=== PATIENT | female | born 1980 | race Caucasian/White ===

== ENCOUNTER 2020-03-30 12:36 | Inpatient (IN) | payer OTHER ==
[~2020-03-30] VITALS: Ht 162.6 cm; Wt 2.7 kg
[2020-04-04] MEDS ORDERED: COZAAR100 MG PO (19:22)
[2020-04-04] MEDS ORDERED: FE C TABLET1 EACH PO (19:22)
[2020-04-04] MEDS ORDERED: B-12500 MCG PO (19:23)
[2020-04-04] MEDS ORDERED: DIALYVITE 800-1 EACH PO (19:23)
[2020-04-04] MEDS ORDERED: PRENATABS RX T1 EACH PO (19:23)
== END 2020-04-07 13:53 | disposition home or self-care (01) | DRG 787 ==
LOC: OB/GYN 04-04 12:31 → LDR 04-04 18:03 → OB/GYN 04-04 18:03 → LDR 04-05 01:08 → OB/GYN 04-05 16:01
PROVIDERS: ADMIT Obstetrics & Gynecology; ATTEND Obstetrics & Gynecology
PROC: 10D00Z1 Extraction of Products of Conception, Low, Open Approach (ICD-10-PCS; principal; 2020-04-04)
PROC: 3E033VJ Introduction of Other Hormone into Peripheral Vein, Percutaneous Approach (ICD-10-PCS; 2020-04-04)
PROC: 3E0D7GC Introduction of Other Therapeutic Substance into Mouth and Pharynx, Via Natural or Artificial Opening (ICD-10-PCS; 2020-04-04)
PROC: 4A1HXFZ Monitoring of Products of Conception, Cardiac Rhythm, External Approach (ICD-10-PCS; 2020-04-04)
DX: O61.0 Failed medical induction of labor (principal); O10.92 Unspecified pre-existing hypertension complicating childbirth; O99.824 Streptococcus B carrier state complicating childbirth; Z3A.38 38 weeks gestation of pregnancy; Z37.0 Single live birth; Z20.828 Contact with and (suspected) exposure to other viral communicable diseases

== ENCOUNTER 2020-12-08 07:55 | Emergency (ER) | payer OTHER ==
[~2020-12-08] VITALS: Ht 162.6 cm; Wt 117.9 kg
[~2020-12-08 07:55] MED LIST: B-12500 MCG PO; COZAAR100 MG PO; DIALYVITE 800-1 EACH PO; FE C TABLET1 EACH PO; PRENATABS RX T1 EACH PO
[2020-12-08] MEDS ORDERED: ZESTRIL20 MG PO (08:26)
[2020-12-08] MEDS ORDERED: BISOPROLOL FUMAR5 MG PO (08:27)
[2020-12-08] MEDS ORDERED: METOCLOPRAMIDE10 MG PO (14:54)
[2020-12-08] MEDS ORDERED: MEDI-MECLIZINE25 MG PO (14:54)
== END 2020-12-08 15:25 ==
LOC: ER 07:55
DX: H81.10 Benign paroxysmal vertigo, unspecified ear (principal); Z03.818 Encounter for observation for suspected exposure to other biological agents ruled out

== ENCOUNTER 2021-07-12 17:57 | Emergency (ER) | payer OTHER ==
[~2021-07-12] VITALS: Ht 162.6 cm; Wt 120.2 kg
[~2021-07-12 17:57] MED LIST changes: +BISOPROLOL FUMAR5 MG PO; +MEDI-MECLIZINE25 MG PO; +METOCLOPRAMIDE10 MG PO; +ZESTRIL20 MG PO
== END 2021-07-13 00:05 | disposition home or self-care (01) ==
LOC: ER 17:57
DX: U07.1 COVID-19 (principal); R19.7 Diarrhea, unspecified

== ENCOUNTER 2021-12-06 15:19 | Emergency (ER) | payer OTHER ==
[~2021-12-06] VITALS: Ht 162.6 cm; Wt 118.8 kg
== END 2021-12-06 20:57 | disposition home or self-care (01) ==
LOC: ER 15:19
DX: J15.7 Pneumonia due to Mycoplasma pneumoniae (principal); R51.9 Headache, unspecified; I10 Essential (primary) hypertension

== ENCOUNTER 2022-04-23 21:19 | Emergency (ER) | payer OTHER ==
[~2022-04-23] VITALS: Ht 162.6 cm; Wt 122.5 kg
== END 2022-04-24 06:22 | disposition home or self-care (01) ==
LOC: ER 21:19
DX: K52.9 Noninfective gastroenteritis and colitis, unspecified (principal); I10 Essential (primary) hypertension

== ENCOUNTER 2022-12-10 03:07 | Inpatient (IN) | payer OTHER ==
[~2022-12-10] VITALS: Ht 162.6 cm; Wt 123.4 kg
--- NOTE | 2022-12-10 03:23 | NUR ---
SE RECIBE PTE ALERTA Y ORIENTADA X3 REFIERE TENER TOS Y DIFICULTADA PARA RESPIRAR LA MISMA REFIERE QUE DESPUES QUE TUVO COVID POSITIVO CADA CONGESTION AL [place] SATURANDO 97%. PTE REFIERE QUE HOY TERMINO ANTIBIOTICOS HOY PORQUE TUVO LKUAS CON TAMEZ DR. DE [place] LE ORDENO AZITROMICYN TAB 500MG YA PRESENTO GLOBULOS RODRIGUEZ ELEVADOS. SE ARLETTE VITALES Y SE MALISSA EN REYNA DE ESPERA
--- NOTE | 2022-12-10 04:21 | NUR ---
PTE ALERTA Y ORIENTADA X3, SE LE ARLETTE MUESTRAS DE LAB. OCTAVIO ORDEN MEDICA BAJO MEDIDAS ASEPTICAS. SE ADMINISTRAN MEDICAMENTOS OCTAVOI ORDEN MEDICA Y SE EDUCA SOBRE TRATAMIENTO MEDICO. SE NOTIFICA ORDEN DE ABG Y TERAPIAS RESPIRATORIAS PENDIENTES A TERAPISTA DE TURNO. PTE MANEJADO POR JESSICA.
--- NOTE | 2022-12-10 08:27 | NUR ---
SE RECIBE PTE ALERTA ORIENTADA X3 EN CAMA CON BARANDAS ELEVADAS POR TAMEZ SEGURIDAD.CON VENTURY MASK 35% SAT-98%.PENDIENTE CONSULTA CON .
== END 2022-12-16 17:56 | disposition home or self-care (01) | DRG 202 ==
LOC: ER → MEDI 11:56
PROVIDERS: General Practice; ADMIT Internal Medicine; ATTEND Internal Medicine
PROC: 3E0F7GC Introduction of Other Therapeutic Substance into Respiratory Tract, Via Natural or Artificial Opening (ICD-10-PCS; principal; 2022-12-10)
DX: J45.901 Unspecified asthma with (acute) exacerbation (principal); J18.8 Other pneumonia, unspecified organism; I10 Essential (primary) hypertension; R09.02 Hypoxemia

== ENCOUNTER 2023-12-25 08:49 | Emergency (ER) | payer OTHER ==
[~2023-12-25] VITALS: Ht 162.6 cm; Wt 121.6 kg
[2023-12-25] MEDS ORDERED: KETOROLAC TROMETHAMINE 60 MG VIAL IM ONE (09:45)
[2023-12-25 11:53] LABS: HEMATOCRIT 37.8 % (36.0-45.00); HEMOGLOBIN 12.9 g/dL (12.0-15.00); MEAN CELL VOLUME 83.8 fL (80.00-100.00); MEAN CORPUSCULAR HEMOGLOBIN 28.5 pg (27.00-32.0); PLATELET COUNT 446 K/uL (150-450); RED BLOOD COUNT 4.51 M/uL (4.00-6.00); RED CELL DISTRIBUTION WIDTH 13.4 % (11.5-14.5)
[2023-12-25 12:22] LABS: CALCIUM 9.2 mg/dL (8.5-10.1); CREATININE SERUM 0.69 mg/dL (0.55-1.02); GFR 93.3; POTASSIUM 3.95 mEq/L (3.5-5.1)
[2023-12-25 12:42] LABS: URINE APPEARANCE Clear; URINE BILIRRUBIN Negative (NEGATIVE); URINE BLOOD Small; URINE COLOR Yellow; URINE GLUCOSE Negative (NEGATIVE); URINE KETONE Negative (NEGATIVE); URINE LEUKOCYTE Trace; URINE NITRATE Negative; URINE PROTEIN Negative (NEGATIVE)
[2023-12-25 12:43] LABS: URINE BACTERIA 2407.8 uL (0.0-1933); URINE RBC 15.7 uL (0.0-20.8); URINE WBC 32.4 uL (0.0-23.2)
[2023-12-25 13:19] LABS: URINE CAST 0.45 uL (0.0-1.40); URINE CRYSTALS FEW /HPF
== END 2023-12-25 14:24 | disposition home or self-care (01) ==
LOC: ER 08:50
PROVIDERS: General Practice
DX: N83.00 Follicular cyst of ovary, unspecified side (principal); R10.2 Pelvic and perineal pain; I10 Essential (primary) hypertension

== ENCOUNTER 2024-03-19 08:47 | Emergency (ER) | payer OTHER ==
[~2024-03-19] VITALS: Ht 152.4 cm; Wt 119.7 kg
[2024-03-19] MEDS ORDERED: TRIAMCINOLONE ACETONIDE 40 MG/ML VIAL IM ONE (09:30)
[2024-03-19] MEDS ORDERED: KETOROLAC TROMETHAMINE 60 MG VIAL IM ONE (09:30)
[2024-03-19] MEDS ORDERED: DICLOFENAC SODI75 MG PO (10:19)
[2024-03-19] MEDS ORDERED: NORFLEX100MG PO (10:19)
== END 2024-03-19 10:24 | disposition home or self-care (01) ==
LOC: ER 08:49
DX: M54.9 Dorsalgia, unspecified (principal); I10 Essential (primary) hypertension

== ENCOUNTER 2024-11-14 09:39 | Emergency (ER) | payer OTHER ==
[~2024-11-14] VITALS: Ht 162.6 cm; Wt 129.3 kg
[~2024-11-14 09:39] MED LIST changes: +DICLOFENAC SODI75 MG PO; +NORFLEX100MG PO
[2024-11-14] MEDS ORDERED: HYDROCHLOROTH12.5 M2 PO (09:48)
[2024-11-14] MEDS ORDERED: FAMOTIDINE/PF 20 MG/2 ML VIAL IV PUSH ONE (10:45)
[2024-11-14] MEDS ORDERED: 0.9 % SODIUM CHLORIDE 1,000 ML IV SCH (11:00)
[2024-11-14 11:59] LABS: BASO % 0.2 % (0.1-1.2); EOS # 0.06 (0.04-0.54); EOS % 0.3 % (0.7-7.0); LYMPH # 3.53 (1.18-3.74); LYMPH % 18.6 % (19.3-53.1); MEAN PLATELET VOLUME 9.50 fl (9.4-12.4); MONO # 1.19 (0.24-0.82); MONO % 6.3 % (4.7-12.5); NEUT # 14.11 (1.56-6.13); NEUT % 74.1 % (34.0-71.1); RED CELL DISTRIBUTION WIDTH 12.7 % (11.6-14.4)
[2024-11-14 12:17] LABS: ALT/SGPT 19.0 U/L (12-78); AST/SGOT 10.0 U/L (15-37); BILIRUBIN TOTAL 1.33 mg/dL (0.3-1.2); BUN CREA RATIO 18.0 (7.0-25.0); CREATININE SERUM 0.62 mg/dL (0.55-1.02); GFR 105.06; GLOBULINA 4.4 G/DL (2.4-3.5); GLUCOSE FASTING 108.0 mg/dL (65-100); OSMOLALITY SERUM 279.0 MOSM/KG (275-295)
[2024-11-14 12:21] LABS: URINE APPEARANCE Clear; URINE BILIRRUBIN Negative (NEGATIVE); URINE BLOOD Negative; URINE COLOR Yellow; URINE GLUCOSE Negative (NEGATIVE); URINE KETONE Negative (NEGATIVE); URINE LEUKOCYTE Trace; URINE NITRATE Negative; URINE PROTEIN Negative (NEGATIVE); URINE UROBILINOGEN 1.0 E.U./dl
[2024-11-14 12:25] LABS: URINE BACTERIA 1552.7 uL (0.0-1933); URINE EPITHELIAL CELLS 20.3 uL (0.0-38.8); URINE RBC 2.9 uL (0.0-20.8); URINE WBC 71.2 uL (0.0-23.2)
[2024-11-14 12:36] LABS: URINE CAST 0.43 uL (0.0-1.40)
[2024-11-14] MEDS ORDERED: MORPHINE SULFATE 4 MG/ML CARTRIDGE IV ONE (13:30)
[2024-11-14] MEDS ORDERED: PIPERACILLIN/TAZOBACTAM SODIUM 3.375 GM VIAL IV ONE (13:30)
== END 2024-11-14 16:56 | disposition home or self-care (01) ==
LOC: ER 09:39
PROVIDERS: Emergency Medicine
DX: K42.9 Umbilical hernia without obstruction or gangrene (principal); N83.202 Unspecified ovarian cyst, left side; R10.9 Unspecified abdominal pain; I10 Essential (primary) hypertension
CPT/HCPCS: 36415; 74177; Q9965